=== PATIENT | female | born 2000 | race Caucasian/White ===

== ENCOUNTER → 2021-11-23 | Outpatient (CLI) | payer BC, MEDICAID | LOC: COL.CARD 11:00 | DX: R00.2 Palpitations (principal) ==

== ENCOUNTER → 2021-11-27 | Outpatient (CLI) | payer BC, MEDICAID | LOC: COL.CARD 09:42 | DX: R00.2 Palpitations (principal); Z53.8 Procedure and treatment not carried out for other reasons ==

== ENCOUNTER → 2023-03-10 | Outpatient (CLI) | payer BC | LOC: COL.RAD 07:10 | DX: E04.1 Nontoxic single thyroid nodule (principal); F45.8 Other somatoform disorders ==